=== PATIENT | female | born 1975 | race Caucasian/White ===

== ENCOUNTER → 2019-10-06 14:09 | Outpatient (CLI) | payer OTHER, SELFPAY ==
--- NOTE | ~2019-10-06 | US_ITS ---
EXAMINATION: US pelvic complete w TV EXAM DATE: 10/06/2019 14:40 INDICATION: Pelvic, perineal pain. TECHNIQUE: Pelvic transabdominal and transvaginal sonogram was performed. There are multiple graysca le and Doppler images available for interpretation. There is no prior study for comparison. FINDINGS: Uterus measures 8.6 x 4.1 x 4.3 cm, is anteverted with a 2 cm fibroid posteriorly and a 1 cm fibroid anteriorly. Endometrial stripe measures 5 mm, within normal limits. There is no free pelv ic fluid. Right adnexa: The ovary measures 2.9 x 2.4 x 1.9 cm and is morphologically normal. Ovarian vascular f low confirmed. Left adnexa: The ovary measures 3.0 x 1.9 x 3.1 cm and is morphologically normal. Ovarian vascular fl ow confirmed. IMPRESSION: Small fibroids Reviewed, dictated and finalized at location A. IMPRESSION: Small fibroids
== END ==
PROVIDERS: PCP Internal Medicine
DX: R10.2 Pelvic and perineal pain (principal); D25.9 Leiomyoma of uterus, unspecified
CPT/HCPCS: 76830; 76856

== ENCOUNTER 2022-05-09 10:06 | Outpatient (CLI) | payer BC, SELFPAY ==
--- NOTE | ~2022-05-09 | MR_ITS ---
EXAMINATION: MR elbow RT wo con DATE: 05/09/2022 10:55 INDICATION: Generalized right elbow pain TECHNIQUE: Magnetic resonance imaging (MRI) of the right elbow was performed without intravenous cont rast. Sequences included coronal, axial, and sagittal PD-weighted FS FSE and coronal, axial, and sagi ttal PD-weighted FSE. COMPARISON: None FINDINGS: Osseous/other: Bone alignment is normal. No fracture, osteochondral lesion or abnormal marrow replacing process. Tendons: Triceps, biceps brachii and brachialis tendons are normal. Common flexor tendon wad is normal. Mild tendinopathy without discrete tear at the lateral epicondylar origin of the extensor tendon wad. Ligaments: The medial and lateral collateral ligament complexes are normal. Cubital tunnel: Mild thickening and mild increased signal the ulnar nerve at the cubital tunnel. There is a normal va riant small anconeus epitrochlearis muscle. Cubital tunnel is otherwise unremarkable. Fluid: Physiologic amount of fluid the elbow joint. IMPRESSION: 1. Minimal tendinopathy without tear at the common extensor tendon wad. 2. Mild thickening and increased signal of the ulnar nerve at the cubital tunnel with normal variant small overlying and conus epitrochlear is muscle bulk without evident impinging mass or osteophytes. Reviewed, dictated and finalized at location A. IMPRESSION: 1. Minimal tendinopathy without tear at the common extensor tendon wad. 2. Mild thickening and increased signal of the ulnar nerve at the cubital tunne l with normal variant small overlying and conus epitrochlear is muscle bulk wit hout evident impinging mass or osteophytes.
== END 2022-05-09 10:07 ==
PROVIDERS: PCP Internal Medicine; Visit Provider Physician Assistant
DX: M25.521 Pain in right elbow (principal)
CPT/HCPCS: 73221

== ENCOUNTER 2023-02-19 06:23 | Emergency (ER) | payer BC, SELFPAY ==
[2023-02-19] VITALS (8 sets, daily range): BP systolic 105–143; BP diastolic 70–84; PULSE 64–75; RESP 18; TEMP 36.4–36.7; O2SAT 99–100
--- NOTE | ~2023-02-19 | CT_ITS ---
EXAMINATION: CT brain wo con DATE: 02/19/2023 09:50 INDICATION: Vertigo. TECHNIQUE: Computed tomography (CT) of the head was performed without intravenous contrast. The mA wa s adjusted according to patient size. Iterative reconstruction technique was employed. The dose-lengt h product was 605.33 mGy-cm. COMPARISON: None FINDINGS: There is no intracranial hemorrhage, acute infarction, or abnormal intracranial mass lesion . The ventricles are normal in size. The orbits are normal. There is mild mucosal thickening in the p aranasal sinuses. The mastoid air cells are normal. The orbits are normal. IMPRESSION: 1. Normal brain. Reviewed, dictated and finalized at location A. OMIC MANAGER IMPRESSION: 1. Normal brain.
[2023-02-19 06:57] LABS: Basophils Percent Auto 0.5 % (0.2-1.2); Eosinophils Percent Auto 0.7 % (0-4.4); Hematocrit 42.1 % (37.0-47.0); Hemoglobin 14.3 g/dL (12.0-15.0); Immature Granulocyte Absolute 0.02 K/mm3 (0.00-0.031); Immature Granulocyte Percent A 0.4 % (0-0.5); Lymphocytes Absolute Auto 1.62 K/mm3 (0.9-3.2); Lymphocytes Percent Auto 28.5 % (18.3-44.2); Mean Corpuscular Hemoglobin 31.2 pg (26-34); Mean Corpuscular Volume 91.7 fl (80-100); Mean Platelet Volume 10.7 fl (7.4-10.4); Monocytes Absolute Auto 0.4 K/mm3 (0.1-0.6); Monocytes Percent Auto 7.2 % (2.6-8.5); Neutrophils Absolute Auto 3.6 K/mm3 (1.3-6.7); Neutrophils Percent Auto 62.7 % (45.5-73.1); Platelet Count Result 213 k/mm3 (150-375); Red Blood Count 4.59 M/mm3 (4.2-5.4); Red Cell Distribution Width 11.3 % (11.5-14.5); White Blood Count 5.7 K/mm3 (4.5-10.0)
[2023-02-19 07:09] LABS: Alanine Aminotransferase 20 U/L (6-35); Albumin Level 4.2 g/dL (3.5-5.1); Alkaline Phosphatase 82 U/L (38-126); Anion Gap 10 mmol/L (8-16); Aspartate Amino Transferase 18 U/L (14-36); Bilirubin,Total 0.9 mg/dL (0.2-1.3); Blood Urea Nitrogen 13 mg/dL (7-17); Calcium 8.8 mg/dL (8.4-10.2); Carbon Dioxide 20 mmol/L (22-30); Chloride 107 mmol/L (98-107); Estimated CRCL calculation 89 ml/min; Estimated Glomerular Filt Rate > 60; Glucose 121 mg/dL (65-110); Lipase 50 U/L (23-300); Potassium 3.9 mmol/L (3.4-5.0); Sodium 137 mmol/L (137-145)
--- NOTE | 2023-02-19 07:22 | ED.GENADULT ---
HPI - General Adult General Chief complaint: Nausea/Vomiting/Diarrhea Stated complaint: vomiting Time Seen by Provider: 02/19/23 06:55 History of Present Illness HPI narrative: 47-year-old female present to the emergency department for evaluation of persistent dizziness. Patient recently had COVID and returned to work. Patient states that she has been having some worsening dizziness over the last few days. Patient states secondary to the dizziness she is also having a lot of nausea and vomiting. Related Data Allergies Allergy/AdvReac Type Severity Reaction Status Date / Time No Known Allergies Allergy Verified 02/19/23 06:37 Review of Systems Review of Systems: All systems reviewed & are unremarkable except as noted in HPI and below Exam Narrative: APPEARANCE: Well appearing, no pain, no distress, well-nourished. HEAD: normocephalic, atraumatic. EYES: PERRLA/EOMI, conjunctivae clear. NOSE: Normal no drainage EARS:TMS clear with good light reflex. THROAT: Pharynx clear, no exudate. NECK: Supple. No adenopathy, no masses. RESPIRATORY: Airway patent, respirations nonlabored. Clear to auscultation bilaterally, no rales, rhonchi, wheezing. CARDIOVASCULAR: Regular rate and rhythm without murmurs rubs or gallops. ABDOMINAL: Soft, nontender, nondistended, normal bowel sounds MUSCULOSKELETAL: Moves all extremities. Strength/ROM intact, No edema, No calf tenderness. NEURO: Alert. Cranial nerves II through XII intact. Grossly intact SKIN: Warm, dry. Normal Color Course Course Emergency Course: 47-year-old female presenting to the emergency department for evaluation of persistent dizziness. Patient describes vertigo. Patient declined any meclizine for symptom control. Patient prefers to stick with IV fluids. Patient was treated with 1 L of normal saline had no significant improvement. Patient ultimately did try the meclizine has also had no significant improvement. Patient was treated with a 2 L of IV fluids along with Valium and patient had a head CT. After treatment with additional fluids, Reglan and Valium patient does feel improved. Patient was updated on the results of her labs and imaging. Patient was comfortable the plan with discharge and close follow. Patient was provided Zofran for nausea control and meclizine for vertigo control. Patient was comfortable with plan for discharge and close follow-up. Vital Signs Vital signs: Vital Signs Temperature 97.5 F L 12/29/23 06:31 Pulse Rate 75 02/19/23 06:31 Respiratory Rate 18 02/19/23 06:31 Blood Pressure 114/81 02/19/23 06:31 Pulse Oximetry 99 02/19/23 06:31 Temperature 97.9 F 02/19/23 11:00 Pulse Rate 67 02/19/23 11:00 Respiratory Rate 18 02/19/23 11:00 Blood Pressure 105/70 02/19/23 11:00 Pulse Oximetry 100 02/19/23 11:00 Medical Decision Making Differential Diagnosis Differential Diagnosis: Benign positional vertigo, central vertigo, dehydration, sinusitis, COVID Vital Signs Vital Signs: Vital Signs Temperature 97.5 F L 02/19/23 06:31 Pulse Rate 75 02/19/23 06:31 Respiratory Rate 18 02/19/23 06:31 Blood Pressure 114/81 02/19/23 06:31 Pulse Oximetry 99 02/19/23 06:31 Temperature 97.9 F 02/19/23 11:00 Pulse Rate 67 02/19/23 11:00 Respiratory Rate 18 02/19/23 11:00 Blood Pressure 105/70 02/19/23 11:00 Pulse Oximetry 100 02/19/23 11:00 Lab Data Lab results reviewed: Yes I reviewed the patient's lab results. 02/19/23 06:45 02/19/23 06:45 Labs: Lab Results 02/19/23 02/19/23 02/19/23 Range/Units 06:45 07:35 08:03 WBC 5.7 (4.5-10.0) K/mm3 RBC 4.59 (4.2-5.4) M/mm3 Hgb 14.3 (12.0-15.0) g/dL Hct 42.1 (37.0-47.0) % MCV 91.7 (80-100) fl MCH 31.2 (26-34) pg MCHC 34.0 (32-36) g/dl RDW 11.3 L (11.5-14.5) % Plt Count 213 (150-375) k/mm3 MPV 10.7 H (7.4-10.4) fl Immature Gran % (Auto) 0.
[2023-02-19] MEDS: SODIUM CHLORIDE 0.9% IV 1,000 ML 999 ML IV CONT ×2 (07:31→08:57)
--- NOTE | 2023-02-19 07:44 | PC.NURSE ---
Pt confrontational with RN during assessment. States I'm dry heaving,that is why I'm here. I'm dehydrated RN reviewed lab results with pt indicating no dehydration. Pt displays aggravation with vital signs and assessment
--- NOTE | 2023-02-19 07:48 | PC.NURSE ---
Pt states is unable to void for UA. States I'm dehydrated and dry heaving, I don't know what you want me to do RN informed pt IV fluids infusing which will help pt to urinate.
[2023-02-19 08:18] LABS: Influenza A QL RT-PCR Negative (Negative); Influenza B QL RT-PCR Negative (Negative); RSV RNA, RT-PCR Negative (Negative); SARS-CoV-2 RNA PCR Positive (Negative)
[2023-02-19] MEDS: MECLIZINE HCL 25 MG TABLET PO (08:56)
[2023-02-19 09:19] LABS: Bacteria Urine 1+ /hpf; Bilirubin Urine Negative (Negative); Blood Urine Negative (Negative); Color Urine Yellow (Yellow); Glucose Urine UA Negative (Negative); Ketones Urine Trace mg/dL (Negative); Leukocyte Esterase Ur Negative LEU/UL (Negative); Nitrate Urine Negative (Negative); Protein Urine 1+ mg/dL (Negative); Specific Grav Ur 1.026 (1.001-1.035); Squamous Epithelial Cell Urine Many /hpf (Few); Urobilinogen Urine 0.2 mg/dL (<2.0)
[2023-02-19 09:20] LABS: Mucus Urine Present /lpf; Need Manual Microscopic Reviewed
[2023-02-19 09:22] LABS: Appearance Urine Cloudy (Clear)
[2023-02-19 09:23] LABS: Add Urine Microscopic? YES
--- NOTE | 2023-02-19 09:43 | PC.NURSE ---
Pt states she can get Meclizine over the counter, I need to know why I have vertigo RN informed pt vertigo is a diagnosis many people have, without a known cause. Treatment is fluids & Meclizine. Pt has right to refuse any treatment. Pt took meds.
--- NOTE | 2023-02-19 09:48 | PC.NURSE ---
Pt transported to CT
[2023-02-19] MEDS: diazePAM (*CRX) 5 MG TABLET 2.5 MG PO (10:26)
[2023-02-19] MEDS: METOCLOPRAMIDE HCL INJ 10 MG/2 ML VIAL IV PUSH (10:27)
== END 2023-02-19 11:24 | disposition home or self-care (01) ==
PROVIDERS: Emergency Medicine; Emergency Provider Emergency Medicine; PCP Internal Medicine
DX: R42 Dizziness and giddiness (principal); Z20.822 Contact with and (suspected) exposure to COVID-19; Z86.16 Personal history of COVID-19
CPT/HCPCS: 36415; 70450; 80053; 81001; 83690; 85025; 87086; 87637; 96361; 96374; 99284; A9270; J2765; J7030